=== PATIENT | male | born 1985 | race Caucasian/White ===

== ENCOUNTER 2018-10-02 11:08 | Emergency (ER) | payer OTHER ==
[~2018-10-02] VITALS: Ht 177.8 cm; Wt 97.5 kg
[~2018-10-02 11:08] MED LIST: ALBU2.5V5; Advair Hfa 230-12 GM; Depo-Testos200 MG/ML; LISI20
[2018-10-02] MEDS ORDERED: LISI20 PO (13:51)
[2018-10-02] MEDS ORDERED: DULO30 PO (13:51)
[2018-10-02] MEDS ORDERED: ZOLP5 PO (13:51)
[2018-10-02] MEDS ORDERED: SAMSCA30 MG PO (13:51)
[2018-10-02] MEDS ORDERED: Depo-Testos200 MG/ML IM (13:52)
[2018-10-02] MEDS ORDERED: Percocet 10-321 EACH PO (13:52)
[2018-10-02] MEDS ORDERED: Garlic1 EAC1 PO (13:52)
[2018-10-02] MEDS ORDERED: FISH OIL 1,0001 EAC1 PO (13:53)
[2018-10-02] MEDS ORDERED: VITAMIN C500 M1 PO (13:53)
== END 2018-10-02 16:04 | disposition home or self-care (01) ==
LOC: ER 11:08
DX: G43.909 Migraine, unspecified, not intractable, without status migrainosus (principal)
CPT/HCPCS: 70450; 96361; 96374; 96375; 99284-25; J0780; J1170; J1200; J1885; J7030

== ENCOUNTER 2020-12-01 08:20 | Day surgery (SDC) | payer OTHER ==
[~2020-12-01] VITALS: Ht 177.8 cm; Wt 100.0 kg
[~2020-12-01 08:20] MED LIST changes: +ALBU90OI INH; +ATEN25 PO; +ATOMOXETINE HCL80 M1 PO; +ATOR20 PO; +DULO30 PO; +Depo-Testos200 MG/ML IM; +FENO48 PO; +FISH OIL 1,0001 EAC1 PO; +Garlic1 EAC1 PO; +LISI20 PO; +MIRT15 PO; +Percocet 10-321 EACH PO; +SAMSCA30 MG PO; +VENL150ER PO; +VITAMIN C500 M1 PO; +Viagra100 MG PO; +ZOLP5 PO
--- NOTE | 2020-12-01 11:05 | NUR ---
followed pt back to recovery pt c/o feeling itchy and scratching self all over. benadryl 25 mg given ivp.
--- NOTE | 2020-12-01 12:23 | NUR ---
PT VERBALIZED UNDERSTANDING OF WRITTEN AND VERBAL D/C INST. -BLEEDING OR SWELLING R FLANK AREA. IV D/C. 0/10 PAIN ON D/C. PT TAKEN OUT HRT CENTER VIA W/C.
== END 2020-12-01 12:34 | disposition home or self-care (01) ==
LOC: MHTC 08:20
DX: Q61.3 Polycystic kidney, unspecified (principal); I10 Essential (primary) hypertension; G89.4 Chronic pain syndrome; E78.5 Hyperlipidemia, unspecified; J32.8 Other chronic sinusitis; M51.36 Other intervertebral disc degeneration, lumbar region; F90.9 Attention-deficit hyperactivity disorder, unspecified type; J45.909 Unspecified asthma, uncomplicated
CPT/HCPCS: 50390; 99152; 99153; C1894; J1200; J2250; J3010; J7030

== ENCOUNTER 2021-05-11 20:19 | Emergency (ER) | payer OTHER ==
[~2021-05-11] VITALS: Ht 177.8 cm; Wt 103.9 kg
[2021-05-13 06:09] LABS: HIV SCREEN 4TH GENERATION WRFX Non Reactive (Non Reactive)
== END 2021-05-11 22:20 | disposition home or self-care (01) ==
LOC: ER 20:19
PROVIDERS: Physician Assistant
DX: Z77.21 Contact with and (suspected) exposure to potentially hazardous body fluids (principal); Z20.822 Contact with and (suspected) exposure to COVID-19; Z88.0 Allergy status to penicillin; Z88.1 Allergy status to other antibiotic agents
CPT/HCPCS: 36415; 87389; 99284

== ENCOUNTER 2022-12-03 13:06 | Day surgery (SDC) | payer OTHER ==
[~2022-12-03] VITALS: Ht 177.8 cm; Wt 104.3 kg
[~2022-12-03 13:06] MED LIST changes: +Flomax0.4 MG PO; +ONDA4 PO; +SULTRIDS PO
[2022-12-03] MEDS ORDERED: VENL25 (13:25)
[2022-12-03] MEDS ORDERED: CATAPRES0.1 MG (13:26)
== END 2022-12-03 15:50 | disposition home or self-care (01) ==
LOC: ORSCSDS 13:06
PROVIDERS: Student in an Organized Health Care Education/Training Program
PROC: 0DBP8ZX Excision of Rectum, Via Natural or Artificial Opening Endoscopic, Diagnostic (ICD-10-PCS; principal; 2022-12-03 14:15)
PROC: 0DBN8ZX Excision of Sigmoid Colon, Via Natural or Artificial Opening Endoscopic, Diagnostic (ICD-10-PCS; principal; 2022-12-03 14:15)
PROC: 0DBE8ZX Excision of Large Intestine, Via Natural or Artificial Opening Endoscopic, Diagnostic (ICD-10-PCS; principal; 2022-12-03 14:15)
PROC: 0DB98ZX Excision of Duodenum, Via Natural or Artificial Opening Endoscopic, Diagnostic (ICD-10-PCS; principal; 2022-12-03 14:15)
PROC: 0DB58ZX Excision of Esophagus, Via Natural or Artificial Opening Endoscopic, Diagnostic (ICD-10-PCS; principal; 2022-12-03 14:15)
PROC: 0DB78ZX Excision of Stomach, Pylorus, Via Natural or Artificial Opening Endoscopic, Diagnostic (ICD-10-PCS; principal; 2022-12-03 14:15)
DX: K92.1 Melena (principal); R19.7 Diarrhea, unspecified; K21.9 Gastro-esophageal reflux disease without esophagitis; K29.70 Gastritis, unspecified, without bleeding; K63.5 Polyp of colon; I10 Essential (primary) hypertension; J45.909 Unspecified asthma, uncomplicated; F43.10 Post-traumatic stress disorder, unspecified; E03.9 Hypothyroidism, unspecified; N18.30 Chronic kidney disease, stage 3 unspecified; E78.5 Hyperlipidemia, unspecified; Z79.899 Other long term (current) drug therapy
CPT/HCPCS: 88305; 88342; J2250; J2704; J7120